=== PATIENT | female | born 1995 | race Caucasian/White ===

== ENCOUNTER 2025-06-08 15:05 | Emergency (ER) | payer BC ==
[~2025-06-08] VITALS: Ht 167.6 cm; Wt 70.0 kg
[2025-06-08 15:11] VITALS: BP 124/88; TEMP 37; O2SAT 98
[2025-06-08 15:13] VITALS: PULSE 99; RESP 16; O2SAT 98
[2025-06-08 15:47] LABS: BASOPHILS % 0.6 % (0.0-2.0); EOSINOPHILS % 2.4 % (0.0-5.0); HEMATOCRIT. 43.3 % (36.0-48.0); HEMOGLOBIN. 15.0 g/dL (12.0-16.0); LYMPHOCYTES % 34.3 % (20.0-50.0); MEAN PLATELET VOLUME 9.4 fl (7.4-10.4); MONOCYTES % 6.5 % (2.0-8.0); NEUTROPHILS % 56.2 % (40.0-76.0); PLATELET 196 x1000/uL (130-400); RED BLOOD CELL COUNT 4.89 mill/uL (4.2-5.4); RED CELL DISTRIBUTION WIDTH 12.7 % (11.6-14.6)
[2025-06-08 16:05] LABS: CREATININE 0.8 mg/dL (0.6-1.0); UREA NITROGEN BLOOD 6 mg/dL (9-23)
== END 2025-06-08 17:14 | disposition left against medical advice (07) ==
LOC: ER 15:05
DX: R51.9 Headache, unspecified (principal); R11.0 Nausea; R20.2 Paresthesia of skin
CPT/HCPCS: 36415; 80048; 82962; 85025; 99281